=== PATIENT | male | born 1955 | race Caucasian/White ===

== ENCOUNTER → 2017-05-14 | Outpatient (CLI) | payer OTHER ==
[~2017-05-14] VITALS: Ht 190.5 cm; Wt 105.9 kg
[~2017-05-14] MED LIST: ASPIRIN325 PO; CRESTOR20 MG PO; LEVOTHYROXIN0.075 MG PO
--- NOTE | ~2017-05-14 | HPC ---
[facility] [address] [address] PAIN MANAGEMENT CONSULTATION Name: JASON ACOSTA Room #: REG WEN Donato#: [id number] Admission: 05/14/17 Attend Phys: Vladimir Calderon MD Discharge: Date of : 57 Report #: [id number] THIS REPORT FOR: //name// CC: Serg Lund MD [facility] Vladimir Hull DATE OF SERVICE: 05/14/2017 Followup visit for recurrent low back pain. The patient was last seen 18 months ago. At that time, he presented with lumbar radiculopathy, received an epidural steroid injection and reports substantial improvement. Pain began to return once again recently and is once again in his low back radiating down into left leg in radicular pattern. He describes also some numbness, tingling and aching. Today is a good day with pain score of 2, but it has been severe at times affecting his activities of daily living, particularly standing, lifting, repetitive motions. He found the epidural steroid so helpful that he made another appointment today to come back and get another injection. It has been again over 18 months since his last treatment. MEDICATIONS: Aspirin, Crestor, Synthroid. ALLERGIES: None. PAST MEDICAL HISTORY: Remarkable for a subdural hematoma treated with a bur hole in 2004, he has had no lasting effects from that. His health has been otherwise good. Denies heart, lung, kidney or liver problems. REVIEW OF SYSTEMS: Otherwise, negative. SOCIAL HISTORY: Denies use of tobacco, drinks alcohol very rarely. Normally likes to exercise, but has not been able to walk as much recently because of pain. 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 PHYSICAL EXAMINATION: A 61-year-old gentleman, pleasant, alert and oriented. Blood pressure 125/80, heart rate 53. Moves from sitting to standing position and ambulates without difficulty. BMI is 29. He is able to bend forward and touch his toes, stretch and extend. Straight leg raising is positive. IMPRESSION: Lumbar radiculopathy, L4-L5. RECOMMENDATION: Epidural steroid injection under fluoroscopic guidance. [facility] [address] [place] [address] PAIN MANAGEMENT CONSULTATION Name: JASON ACOSTA Room #: REG [facility].#: [id number] Admission: 05/14/17 Attend Phys: Vladimir Calderon MD Discharge: Date of : 57 Report #: [id number] Procedure was reviewed once again with the patient potential risks and benefits. We were unable to perform the injection today because of preauthorization requirements. He is an excellent candidate for this treatment and will hopefully facilitate physical therapy by relieving some of his pain. By: 99 35 Vladimir Calderon MD /nt
[2017-05-14 11:11] VITALS: BP 125/80
== END | disposition home or self-care (01) ==
LOC: PAIN 06:38
DX: M54.16 Radiculopathy, lumbar region (principal); G89.29 Other chronic pain; Z79.82 Long term (current) use of aspirin; Z98.890 Other specified postprocedural states

== ENCOUNTER → 2017-05-31 | Outpatient (CLI) | payer OTHER ==
[~2017-05-31] VITALS: Ht 190.5 cm; Wt 107.0 kg
[2017-05-31 12:53] VITALS: BP 131/76
== END | disposition home or self-care (01) ==
LOC: PAIN 06:50
DX: M54.16 Radiculopathy, lumbar region (principal)

== ENCOUNTER → 2018-05-16 | Outpatient (CLI) | payer BC, OTHER ==
[~2018-05-16] VITALS: Ht 190.5 cm; Wt 105.2 kg
--- NOTE | ~2018-05-16 | HPC ---
[facility] [address] [place] [address] PAIN MANAGEMENT CONSULTATION Name: JASON ACOSTA Room #: REG WEN FernandezShahidJenesnShahid#: [id number] Admission: 05/16/18 Attend Phys: Vladimir Calderon MD Discharge: Date of : 57 Report #: [id number] THIS REPORT FOR: //name// CC: Vladimir Hull DATE OF SERVICE: 05/16/2018 Followup visit for recurring lumbar radiculopathy. The patient was last here about a year ago. He received lumbar epidural injection with good improvement lasting many, many months. Pain is now returning and once again is in his low back and radiates into his left leg. He has been seen by another physician who told him that he had peripheral neuropathy based upon test with pinprick and light touch. He has not had an MRI. He describes his pain today as localized mostly in the left buttock and cheek radiating down the posterolateral aspect of the leg in the L5-S1 distribution. PHYSICAL EXAMINATION: 6 feet 3 inches, 232 pounds, BMI 29, blood pressure 113/70, heart rate 61, respirations 14 and O2 sat 99. He has localized tenderness across his low back ____ excellent range of motion in flexion and extension. Straight leg raising is mildly positive on the left reproducing some symptoms. Deep tendon reflexes are 2+ at the knees and absent at the ankles. Pinprick sensation to pinwheel exam is normal bilaterally. No focal strength weakness is noted in the lower extremities. We do not have an MRI. I told him that I would order one if it is not improved over time. IMPRESSION: Lumbar radiculopathy, left L5-S1. PROCEDURE: He was taken to the fluoroscopic suite for treatment, placed prone, skin prepped with ChloraPrep. Skin anesthetized over the L4-L5 interspace to the left of midline. A 20-gauge Tuohy epidural needle advanced into the epidural space just to the left of midline. No blood or CSF was aspirated. 1 mL of Omnipaque was injected. Excellent spread of dye observed in the epidural space followed by 3 mL of 0.5% lidocaine mixed with 80 mg of triamcinolone. He tolerated the procedure well and was observed for 45 minutes and discharged with a followup visit scheduled on an as needed basis in the future. <ELECTRONICALLY SIGNED> By: Vladimir Calderon MD 05/20/18 1230 1314 0517 Vladimir Calderon MD /nt
[2018-05-16 12:38] VITALS: BP 113/70
== END ==
LOC: PAIN 07:26
DX: M54.16 Radiculopathy, lumbar region (principal); Z68.29 Body mass index [BMI] 29.0-29.9, adult

== ENCOUNTER → 2018-09-30 | Outpatient (CLI) | payer OTHER ==
[~2018-09-30] VITALS: Ht 190.5 cm; Wt 107.0 kg
--- NOTE | ~2018-09-30 | HPC ---
[facility] [address] [address] PAIN MANAGEMENT CONSULTATION Name: JASON ACOSTA Room #: REG WEN [place].#: [id number] Admission: 09/30/18 Attend Phys: Vladimir Calderon MD Discharge: Date of : 57 Report #: [id number] THIS REPORT FOR: //name// CC: Vladimir Hull MD DATE OF SERVICE: 09/30/2018 CHIEF COMPLAINT: Followup visit for chronic low back pain with recurring symptoms radiating into the left hip, left thigh and he also has bilateral numbness involving the feet. The patient is here today in followup. He is a 63-year-old gentleman. He has responded in the past to epidural injections with some temporary relief. He complains today of pain in the level of 4 that begins in his low back, radiates down the left leg as far as the knee. He has recently been diagnosed with neuropathy, although the diagnosis was not very much further than that. He has a tingling and numbness sensation in the feet bilaterally, worse a bit on the medial aspect more along the L4-L5 distribution. Pain interferes with general activities including standing, lifting and repetitive motions. He does some stretching exercises and has seen some improvement with epidural injections. MEDICATIONS: Levothyroxine, Crestor and aspirin. ALLERGIES: None. PAST MEDICAL HISTORY: Significant for elevated cholesterol. He has had some foot problems and has seen a electric track switch maintainer who suggested his diagnosis of neuropathy, but did not pursue causes. SOCIAL HISTORY: Denies use of tobacco. He consumes alcohol in social setting. PHYSICAL EXAMINATION: Pleasant gentleman. Blood pressure 109/54, heart rate 63, 6 feet 3 inches, 235 pounds with a BMI of 29.5. Moves easily and quickly from sitting to standing position, ambulates without antalgic features. Examination of the spine reveals mild tenderness. Forward flexion and extension are performed without discomfort. Straight leg raising produces mild pain located into the left hip and lateral thigh. Sensation to pinprick is intact bilaterally from ankles down. There is no evidence of loss of sensation. Strength is normal within the lower extremities. Deep tendon reflexes are 2+ at the knee, absent at ankle. [facility] [address] [place] [address] PAIN MANAGEMENT CONSULTATION Name: JASON ACOSTA Room #: REG [facility].#: [id number] Admission: 09/30/18 Attend Phys: Vladimir Calderon MD Discharge: Date of : 57 Report #: [id number] X-RAYS: None. IMPRESSION: Low back pain with some evidence of radiculopathy on the left L4-L5 distribution. Bilateral foot numbness, which could be a component of either radiculopathy or perhaps peripheral neuropathy, although causes are not identified. RECOMMENDATION: I think we need some x-rays. We do not have an MRI at any point in time and has had these symptoms now for several years. At baseline, would be important. Plain film x-rays also may be helpful simply to provide us with good evidence of alignment and also to check for facet arthropathy and other changes. This can be done quickly today with the possibility of proceeding with epidural injection once we have studies completed. Plan to have him return to pain clinic for an epidural injection. I hope that our x-ray studies will help guide the injection. MRI was completed today! We were able to review and it is noted that there is severe spinal stenosis at 3 levels. Most prominent at L3-L4 and L4-5. We have discussed an epidural steroid injection at L3-4 today as our approach. Followup by phone. Procedure: Patient Taken to fluorscopic suite and placed prone Skin prep with cholorprep 1% lidocaine for skin and subcutaneous tissue at L3-4 20 ga. Touhy with ZULY no CSF or blood 1 ml of omnipaque 3 ml of 1%lidocaine with 80 mg. of triamcinolone. Good relief. Discharged from PACU in good condition. <ELECTRONICALLY SIGNED> By: Vladimir Calderon MD 10/02/18 1630 1158 837 Vladimir Calderon MD /nt
[2018-09-30 09:14] VITALS: BP 109/54
== END | disposition home or self-care (01) ==
LOC: PAIN 07:01
DX: M54.16 Radiculopathy, lumbar region (principal); G89.29 Other chronic pain; E78.00 Pure hypercholesterolemia, unspecified; G62.9 Polyneuropathy, unspecified; Z79.899 Other long term (current) drug therapy; Z79.82 Long term (current) use of aspirin; Z98.890 Other specified postprocedural states

== ENCOUNTER → 2018-09-30 | Outpatient (CLI) | payer OTHER | LOC: RAD 10:30 | DX: M47.26 Other spondylosis with radiculopathy, lumbar region (principal); M51.17 Intervertebral disc disorders with radiculopathy, lumbosacral region; M48.062 Spinal stenosis, lumbar region with neurogenic claudication; M48.07 Spinal stenosis, lumbosacral region ==

== ENCOUNTER → 2019-10-30 | Outpatient (CLI) | payer OTHER ==
[~2019-10-30] VITALS: Ht 190.5 cm; Wt 109.8 kg
[~2019-10-30] MED LIST changes: +IBUPROFEN 200200 M1 PO
--- NOTE | ~2019-10-30 | HPC ---
[facility] [address] [place] [address] PAIN MANAGEMENT CONSULTATION Name: JASON ACOSTA Room #: REG WEN Marshall.#: [id number] Admission: 10/30/19 Attend Phys: Vladimir Calderon MD Discharge: Date of : 57 Report #: [id number] THIS REPORT FOR: //name// CC: Vladimir Hull DATE OF SERVICE: 10/30/2019 CHIEF COMPLAINT: Low back pain with radiation into left lateral thigh with numbness and tingling. The patient returns to pain clinic today for ongoing consideration of treatment involving his low back with radiculopathy. He describes a radiating pain down his left lateral thigh with numbness, tingling, itching sensation. It stops at the knee. These symptoms have been worsening over the last 6 months. He has an appointment to see Dr. Little. He is hopeful that he can get an injection to improve his pain while he considers surgical options. He has an MRI scheduled for tomorrow. Pain is made worse with standing, doing yard work and gets worse as the day goes on. It is alleviated by medication and he has had good response to the lumbar epidural injections. MEDICATIONS: Ibuprofen, levothyroxine and aspirin. ALLERGIES: None. PHYSICAL EXAMINATION: Blood pressure 116/77, heart rate 74, respirations 16. He is 6 feet 3 inches. BMI of 30.2. His gait is mildly antalgic. Examination of the spine reveals pain with both flexion and worse with extension. Straight leg raising reproduces some discomfort into the left L4-L5 distribution. Sensation is intact. He does have an MRI from a couple of years ago and reviewed that MRI today. He will have a new one soon. He has multilevel disk bulging and thickening of the ligamentum flavum to create [id number] central canal stenosis and also lateral recess stenosis, which could be causing some radicular symptoms. RECOMMENDATIONS: I will perform an epidural injection for him and we will seek preauthorization. I would like to do that after I have a chance to see the MRI, which may determine the location of my injection. A transforaminal epidural injection or a midline injection may be indicated after we have the results of the study. [address] [address] PAIN MANAGEMENT CONSULTATION Name: JASON ACOSTA Room #: REG WEN Donato#: [id number] Admission: 10/30/19 Attend Phys: Vladimir Calderon MD Discharge: Date of : 57 Report #: [id number] Plan to see him back sometime in a week or two for that injection. By: 1719 0034 Vladimir Calderon MD /nt
[2019-10-30 13:17] VITALS: BP 116/77
--- NOTE | 2019-10-30 13:32 | NUR ---
Pain Clinic Assessment: 1. History of Osteoarthritis: BACK/NECK History of Rheumatoid Arthritis: Not Applicable 2. Height: 6 ft. 3 in. 190.5 cm. Weight: 242.0 lb. oz. 109.771 kg. Patient's BMI: 30.2 3. Vital Signs: BP: 116/77 Pulse: 74 Resp: 16 Temp: 02 Sat: 96 ECG Mon: 4. Pain Intensity: 3 5. Fall Risk: Dizziness: N Needs help standing or walking: N Fallen in the last 3 months: N Fall risk comments: 6. Patient on Blood Thinner: None 7. History of Hypertension: N 8. Opioid Therapy greater than 6 weeks: N Opiate Contract Signed: 9. Risk Assessment Tool Provided: LOW RISK 0/3 10. Functional Assessment Tool: 42/ 11. Recreational Drug Use: Never Drug Type: Tobacco Use: Never Smoker Tobacco Type: Amount or Packs/day: How Many Years: Alcohol Use: Yes Frequency: Monthly Quant: 1-2
== END ==
LOC: PAIN 06:51
DX: M54.5 Low back pain (principal); Z79.899 Other long term (current) drug therapy

== ENCOUNTER → 2019-10-31 | Outpatient (CLI) | payer OTHER | LOC: MRI 10:52 | DX: M47.26 Other spondylosis with radiculopathy, lumbar region (principal); M41.86 Other forms of scoliosis, lumbar region; M51.16 Intervertebral disc disorders with radiculopathy, lumbar region; M48.061 Spinal stenosis, lumbar region without neurogenic claudication; M43.16 Spondylolisthesis, lumbar region; M51.27 Other intervertebral disc displacement, lumbosacral region ==

== ENCOUNTER 2019-12-17 06:41 | Day surgery (SDC) | payer OTHER ==
[2019-12-10 09:10] LABS: HEMATOCRIT 47.2 % (42.0-52.0); HEMOGLOBIN 16.2 gm/dL (14.0-18.0); MCHC 34.2 g/dL (28.0-37.0); MCV 93.4 fL (80.0-100.0); PLATELET COUNT 187 thou/uL (150-400); RBC 5.05 mil/uL (4.50-6.00); WBC 4.3 thou/uL (4.0-11.0)
[2019-12-10 09:26] LABS: CALCIUM 9.3 mg/dL (8.5-10.1); CREATININE 0.9 mg/dL (0.7-1.3); POTASSIUM 4.2 mmol/L (3.5-5.1); TOTAL BILIRUBIN 0.5 mg/dL (<0.1-1.0); TOTAL PROTEIN 7.1 g/dL (6.4-8.2)
[2019-12-10 09:51] LABS: ABSOLUTE NEUTROPHILS 2.9 thou/uL (1.4-8.2); PLATELET ESTIMATE NORMAL
[~2019-12-17] VITALS: Ht 188 cm; Wt 108.0 kg
[2019-12-17] VITALS (8 sets, daily range): BP systolic 106–131; BP diastolic 52–82
[~2019-12-17 06:41] MED LIST changes: +ASPIR-LOW81 MG PO; +REPATHA SY140 MG/1 M SUBQ; +SYNTHROID75 MCG PO; +SYNTHROID88 MC1 PO; +UBIQUINOL100 MG PO; +VITAMIN D35000 UNI2 PO
--- NOTE | 2019-12-17 09:26 | H ---
[facility] [place] [address] [place] [address] HISTORY AND PHYSICAL Name: JASON ACOSTA Room #: 150-3 [facility] M..#: [id number] Admission: 12/17/19 Attend Phys: Germán Little MD Discharge: Date of : 57 Report #: [id number] THIS REPORT FOR: //name// CC: Germán Hull DICTATED BY: Amy Moody NP PREOPERATIVE HISTORY AND PHYSICAL DATE OF SURGERY AND ADMISSION: 12/17/2019. HISTORY OF PRESENT ILLNESS: The patient is a pleasant 64-year-old who is having difficulty with low back pain and pain that radiates to his left lateral thigh. He reports numbness in both of his feet. He also notes tingling in his left lateral thigh. The back pain began a few years ago. His leg pain began approximately a year ago. There was no inciting event. The pain can reach 10/10 with certain activities, walking, twisting increases pain. Sitting helps. He is not taking any pain medication. He has had multiple lumbar epidural steroid injections, which usually help him. PAST MEDICAL HISTORY: MA, atherosclerosis. CURRENT MEDICATIONS: Synthroid, alirocumab, ubiquinol, vitamin b12, cosamin ALLERGIES: No known drug allergies. PAST SURGICAL HISTORY: Hammertoe surgery, sinus surgery, MA, subdural hematoma in 2003. FAMILY HISTORY: Heart disease, MA. SOCIAL HISTORY: Employed as an administrative assistant office manager. . Does not smoke. Drinks alcohol 1-2 times per month. REVIEW OF SYSTEMS: A 12-point review of systems was performed and is noncontributory except that mentioned above. PHYSICAL EXAMINATION: GENERAL: Alert, pleasant, in no acute distress. HEENT: Normocephalic, atraumatic. SKIN: Warm and dry. MUSCULOSKELETAL: Lumbar paraspinal muscle bulk is normal, restricted range of motion of the lumbar spine, [id number] tenderness of the lower lumbar spine on palpation, normal range of motion of the lower extremities bilaterally. SKIN: Warm and dry. EXTREMITIES: No clubbing, cyanosis or edema. [address] [address] HISTORY AND PHYSICAL Name: JASON ACOSTA Room #: 150-3 [facility] M.R.#: [id number] Admission: 12/17/19 Attend Phys: Germán Little MD Discharge: Date of : 57 Report #: [id number] NEUROLOGIC: Alert and oriented x 3, normal recent and remote memory, strength is 5/5 in the bilateral lower extremities, sensory was intact to light touch in the lower extremities except for a decreased sensation in the left lateral thigh, reflexes were present and symmetric in the lower extremities bilaterally, negative straight leg raising bilaterally, normal gait. IMAGING: He has a congenitally small canal. At L3-L4, there is moderate canal stenosis. There is severe right lateral recess narrowing. At L4-L5, again there is moderate canal stenosis and there is severe lateral recess narrowing with effacement of the left L5 nerve root. ASSESSMENT AND PLAN: I believe the problems at L4-L5 on the left are responsible for many of his symptoms. He is slowly worsening despite conservative measures including lumbar epidural steroid injections. My recommendation is that he consider a lumbar microdecompression surgery at L4-L5 on the left. We spoke about the surgery, the technique, the risk and the expected postoperative course. He would like to go ahead. We are going to make arrangements. <ELECTRONICALLY SIGNED> By: Germán Little MD 12/17/19 0926 1150 1214 Germán Little MD /nt
[2019-12-17] MEDS ORDERED: NORCO 5-325 TA1 EAC1 PO (14:35)
[2019-12-17] MEDS ORDERED: ROBAXIN 750 MG750 MG PO (14:36)
[2019-12-17] MEDS ORDERED: COLACE100 MG PO (14:36)
[2019-12-18 00:15] VITALS: BP 131/72
[2019-12-18 04:50] VITALS: BP 106/59
[2019-12-18 08:00] VITALS: BP 103/55
[2019-12-18 09:36] VITALS: BP 103/55
--- NOTE | 2019-12-19 16:09 | O ---
[facility] [place] [address] [place] [address] OPERATIVE REPORT Name: JASON ACOSTA Room #: DEP [facility] M.R.#: [id number] Admission: 12/17/19 Attend Phys: Germán Little MD Discharge: 12/18/19 Date of : 57 Report #: [id number] THIS REPORT FOR: //name// CC: Germán Hull DATE OF SERVICE: 12/17/2019 PREOPERATIVE DIAGNOSIS: Severe lateral recess stenosis with lumbar radiculopathy, L4-L5, left. POSTOPERATIVE DIAGNOSIS: Severe lateral recess stenosis with lumbar radiculopathy and disc bulging, L4-L5, left. OPERATIONS PERFORMED: 1. Hemilaminotomy with microdecompression of the dura and nerve at L4-L5. 2. Lumbar microdiscectomy, L4-L5, left. The operation was done with EMG monitoring, SSEP monitoring, fluoroscopy microscopic dissection. SURGEON: Germán Little M.D. AGRICULTURAL ENGINEERING TEACHER: Amy Moody NP assisted with the surgery. She assisted with exposure, microdiscectomy and decompression as well as the closure. OPERATIVE INDICATIONS: The patient is a very pleasant 64-year-old who developed intractable back and left leg pain, which failed conservative measures and he had the above-mentioned findings and imaging studies and I recommended lumbar microsurgical decompression. I did speak with him about the surgery, the risk, technique and expected postoperative course and he wished to go ahead. DESCRIPTION OF PROCEDURE: Following general endotracheal anesthesia, the patient was positioned prone on the Ashvin table. Lumbar region was prepped and draped in standard fashion. MERON hose and AV impulse boots were applied for DVT prophylaxis. Microscope was draped. Fluoroscope was draped into the field. Monitoring was established. Ancef 2 grams were given less than 1 hour prior to initiation of the surgery. Using fluoroscopic guidance, incision was made directly over the L4-L5 interspace. I dissected down through the skin and subcutaneous tissue. I reflected the paraspinal muscles and placed a [place] microdisk retractor. I confirmed the position fluoroscopically. I brought in the microscope and the remainder of surgery was done with the microscope using microscopic technique. I burred down a generous hemilaminotomy and then began to trim away thickened ligamentum flavum, exposing the dura. As I worked inferiorly trimming away ligamentum flavum and working from medial to lateral at the level of the disc and below this, there was considerable hypertrophic bone, which was markedly compressing the nerve. Dissection through this region was somewhat tedious, but there were no difficulties per se. I worked from [address] [address] OPERATIVE REPORT Name: ACOSTAJASON STEVE Room #: DEP [facility] M.R.#: [id number] Admission: 12/17/19 Attend Phys: Germán Little MD Discharge: 12/18/19 Date of : 57 Report #: [id number] to lateral and began to trim away first ligamentum flavum and then bone over the exiting root and as I worked, I was able to perform a partial foraminotomy and fully decompress the root and the common dural sac. I retracted the dura medially. There was disc bulging and I incised the ligament and annulus and performed a microdiscectomy. Following this, I explored carefully. I felt that the region was very well decompressed. The nerve was quite free. I irrigated with antibiotic solution. I closed the wound then in layers with absorbable suture and skin was closed with 4-0 subcuticular stitch. I felt the surgery went very well and the patient was taken to recovery room in excellent condition. I was quite pleased with the surgery. <ELECTRONICALLY SIGNED> By: Germán Little MD 12/19/19 1609 1502 1559 Germán Little MD /nt
== END 2019-12-18 10:39 | disposition home or self-care (01) ==
LOC: OR 06:41 → TBA 06:43 → OR 08:04 → 4S 17:53 → OR 18:33
PROVIDERS: Neurological Surgery
DX: M51.16 Intervertebral disc disorders with radiculopathy, lumbar region (principal); M48.062 Spinal stenosis, lumbar region with neurogenic claudication; E78.5 Hyperlipidemia, unspecified; I25.2 Old myocardial infarction; G47.30 Sleep apnea, unspecified; E03.9 Hypothyroidism, unspecified; Z98.890 Other specified postprocedural states; Z79.899 Other long term (current) drug therapy; Z79.82 Long term (current) use of aspirin
CPT/HCPCS: 50010; 50101; 50144; 50402; 50503; 50515; 50704; 50850; 51609; 51687; 51758; 51779; 53210; 54118; 56528; 56532; 56805; 62110; 62900; 70005

== ENCOUNTER → 2021-12-12 | Outpatient (CLI) | payer OTHER ==
[~2021-12-12] MED LIST changes: +COLACE100 MG PO; +NORCO 5-325 TA1 EAC1 PO; +ROBAXIN 750 MG750 MG PO
== END | disposition home or self-care (01) ==
LOC: SJCVCIMAG 07:16
PROVIDERS: ATTEND Internal Medicine
DX: R00.0 Tachycardia, unspecified (principal); I25.10 Atherosclerotic heart disease of native coronary artery without angina pectoris; E78.5 Hyperlipidemia, unspecified; Z95.5 Presence of coronary angioplasty implant and graft